=== PATIENT | female | born 1965 | race Caucasian/White ===

== ENCOUNTER 2020-12-15 10:33 | Emergency (ER) | payer OTHER ==
[2020-12-15 10:37] VITALS: BP 138/82; PULSE 70; TEMP 97; BMI 24.1
[2020-12-15] MEDS ORDERED: IBUPROFEN 400 MG TABLET (FP) PO ONE ×2 (11:07→11:08)
== END 2020-12-15 11:33 | disposition home or self-care (01) ==
LOC: JERFT 10:33 → JER 10:33 → JERFT 11:33
DX: S62.646A Nondisplaced fracture of proximal phalanx of right little finger, initial encounter for closed fracture (principal)
CPT/HCPCS: 73140-TC-RT-FY; 99283-25